=== PATIENT | female | born 1980 | race Caucasian/White ===

== ENCOUNTER → 2017-02-24 | Outpatient (CLI) | payer MEDICAID ==
--- NOTE | 2017-02-24 14:37 | Diagnostic Imaging Report ---
INDICATION: Right wrist injury, pain. COMPARISON: None. FINDINGS: Three views of right wrist demonstrate no fracture or dislocation. Articular surfaces are normal. No osseous lesion. IMPRESSION: Negative right wrist. Dictated by: Dictated on workstation # [id number]
== END ==
LOC: RAD 13:54
PROVIDERS: ATTEND Nurse Practitioner Family
DX: M25.531 Pain in right wrist (principal)
CPT/HCPCS: 73110

== ENCOUNTER 2017-05-24 16:21 | Emergency (ER) | payer MEDICAID ==
[~2017-05-24] VITALS: Ht 165.1 cm; Wt 56.7 kg
--- OUTSIDE RECORDS SUMMARY | 2017-05-24 16:26 | XMS REPORT ---
Author Author TIBURCIO ROSALES Organization [employer] Address Unknown Phone Unavailable Care Team Providers Care Gum Cook Name Role Phone TIBURCIO ROSALES CP Unavailable Allergies, Adverse Reactions, Alerts Substance Reaction Event Type Lortabs GI upset Non Drug Allergy ibuprofen GI upset Non Drug Allergy Problems Problem Type Condition ICD-9 Code Onset Dates Condition Status Problem Previous delivery, antepartum 654.23 Active Assessment Cervicalgia 723.1 Active Problem Depression NEC 311 Active Medications Medication Code System Code Instructions Start Date End Date Status Dosage Celebrex NDC 92966 100 mg orally 2 times a day November 24, 2014 1 cap(s ) One-A-Day Women NDC 74718 not defined cyclobenzaprine NDC 96713 10 mg orally 3 times a day as needed for pain November 24, 2014 1 tab(s) tramadol NDC 21555 50 mg orally up to every 6 hours as needed for pain November 24, 2014 1-2 tab(s) Procedures Procedure Coding System Code Date Office Visit, estab pt, Level 3 CPT-4 36709 November 24, 2014 Ketorolac CPT-4 J1885 November 24, 2014 Vital Signs Date/Time: November 24, 2014 Blood Pressure Systolic 140 mm Hg Temperature 98.6 F Weight 127 lbs Oximetry 97 % Pain Scale 9 0-10 Blood Pressure Diastolic 90 mm Hg Results Name Result Date Reference Range Unit Abnormality Flag XR CERVICAL SPINE 2 OR 3 VIEWS Summary Purpose [employer] Submission
--- OUTSIDE RECORDS SUMMARY | 2017-05-24 16:26 | XMS REPORT ---
Author Author TIBURCIO ROSALES Organization [employer] Address Unknown Phone Unavailable Care Team Providers Care Housekeeping/Laundry Supervisor Name Role Phone TIBURCIO ROSALES CP Unavailable Allergies, Adverse Reactions, Alerts Substance Reaction Event Type Lortabs GI upset Non Drug Allergy ibuprofen GI upset Non Drug Allergy Problems Problem Type Condition Code Onset Dates Condition Status Problem Maternal care for scar from previous delivery O34.21 Active Assessment Low back pain M54.5 Active Problem Encounter for supervision of other normal , first trimester Z34.81 Active Assessment Muscle spasm of back M62.830 Active Medications Medication Code System Code Instructions Start Date End Date Status Dosage tramadol NDC 34186 50 mg orally every 6 hours as needed for pain December 20, 2015 1-2 tab(s) Voltaren Topical NDC 527307 1% applied topically 4 times a day as needed December 20, 2015 2 g 1 NDC 587404 not defined celecoxib NDC 19389 100 mg orally 2 times a day December 20, 2015 1 cap( s) Skelaxin NDC 1680 800 mg orally 3 times a day December 20, 2015 1 tab(s) Tylenol NDC 6732 not defined Fish Oil NDC 20028 not defined Procedures Procedure Coding System Code Date Office Visit, estab pt, Level 4 CPT-4 54272 December 20, 2015 Vital Signs Date/Time: December 20, 2015 Blood Pressure Systolic 128 mm Hg Temperature 98 F Weight 145 lbs Oximetry 98 % Pain Scale 7 0-10 Blood Pressure Diastolic 80 mm Hg Results No Known Results Summary Purpose [employer] Submission
--- OUTSIDE RECORDS SUMMARY | 2017-05-24 16:26 | XMS REPORT ---
Author Author MAUREEN GUERRERO Organization [employer] Address Unknown Phone Unavailable Care Team Providers Care Optometrist Owner Name Role Phone MAUREEN GUERRERO CP Unavailable Allergies No Known Allergies Problems Problem Type Condition Code Onset Dates Condition Status Problem Previous delivery, antepartum 654.23 Active Problem Depression NEC 311 Active Medications No Known Medications Results No Known Results Summary Purpose [employer] Submission
--- OUTSIDE RECORDS SUMMARY | 2017-05-24 16:26 | XMS REPORT ---
Author Author TIBURCIO ROSALES Organization [employer] Address Unknown Phone Unavailable Care Team Providers Care Air Table Operator Name Role Phone TIBURCIO ROSALES CP Unavailable Allergies No Known Allergies Problems Problem Type Condition Code Onset Dates Condition Status Problem Maternal care for scar from previous delivery O34.21 Active Problem Encounter for supervision of other normal , first trimester Z34.81 Active Medications No Known Medications Results No Known Results Summary Purpose [employer] Submission
--- OUTSIDE RECORDS SUMMARY | 2017-05-24 16:26 | XMS REPORT ---
Author Author MAUREEN GUERRERO Organization [employer] Address Unknown Phone Unavailable Care Team Providers Care Chief Scientific Officer Name Role Phone MAUREEN GUERRERO CP Unavailable Allergies, Adverse Reactions, Alerts Substance Reaction Event Type Lortabs GI upset Non Drug Allergy ibuprofen GI upset Non Drug Allergy Problems Problem Type Condition Code Onset Dates Condition Status Problem Maternal care for scar from previous delivery O34.21 Active Assessment Encounter for supervision of other normal , first trimester Z34.81 Active Problem Encounter for supervision of other normal , first trimester Z34.81 Active Assessment Maternal care for scar from previous delivery O34.21 Active Medications Medication Code System Code Instructions Start Date End Date Status Dosage Aspirin Low Dose NDC 783644 81 mg orally once a day Apr 19, 2015 1 tab(s) 1 NDC 902255 Multivitamins with Folic Acid 0.975 mg orally once a day 1 cap(s) Procedures Procedure Coding System Code Date INITIAL CARE VISIT CPT-4 0500F Apr 19, 2015 Vital Signs Date/Time: Apr 19, 2015 Blood Pressure Systolic 118 mm Hg Weight 132 lb lbs Height 65 in Pain Scale 0/10 0-10 Blood Pressure Diastolic 68 mm Hg Results No Known Results Summary Purpose [employer] Submission
--- OUTSIDE RECORDS SUMMARY | 2017-05-24 16:26 | XMS REPORT ---
Author Author COOPER OLSON Organization [employer] Address Unknown Phone Unavailable Care Team Providers Care Pocket Creaser Name Role Phone COOPER OLSON CP Unavailable Allergies, Adverse Reactions, Alerts Substance Reaction Event Type Lortabs GI upset Non Drug Allergy ibuprofen GI upset Non Drug Allergy Problems Problem Type Condition Code Onset Dates Condition Status Problem Maternal care for scar from previous delivery O34.21 Active Assessment Cervicalgia M54.2 Active Problem Encounter for supervision of other normal , first trimester Z34.81 Active Medications Medication Code System Code Instructions Start Date End Date Status Dosage cyclobenzaprine [facility] 90977 10 mg orally 3 times a day November 24, 2015 1 tab(s) Procedures Procedure Coding System Code Date Office Visit, estab pt, Level 3 CPT-4 70533 November 24, 2015 Vital Signs Date/Time: November 24, 2015 Blood Pressure Systolic 110 mm Hg Temperature 96.8 F Weight 143 lbs Oximetry 98 % Pain Scale 6 0-10 Blood Pressure Diastolic 70 mm Hg Results No Known Results Summary Purpose [employer] Submission
--- OUTSIDE RECORDS SUMMARY | 2017-05-24 16:26 | XMS REPORT ---
Author Author MAUREEN GUERRERO Organization [employer] Address Unknown Phone Unavailable Care Team Providers Care Dot Compliance Specialist Name Role Phone MAUREEN GUERRERO CP Unavailable Allergies No Known Allergies Problems Problem Type Condition ICD-9 Code Onset Dates Condition Status Problem Previous delivery, antepartum 654.23 Active Problem Depression NEC 311 Active Medications No Known Medications Results No Known Results Summary Purpose [employer] Submission
--- OUTSIDE RECORDS SUMMARY | 2017-05-24 16:26 | XMS REPORT ---
Author Author MAUREEN GUERRERO Organization [employer] Address Unknown Phone Unavailable Care Team Providers Care Projection Camera Operator Name Role Phone MAUREEN GUERRERO CP Unavailable Allergies No Known Allergies Problems Problem Type Condition Code Onset Dates Condition Status Assessment Supervision of with other poor reproductive or obstetric history, first trimester O09.291 Active Assessment Weeks of gestation of not specified Z3A.00 Active Assessment Encounter for screening of mother Z36 Active Medications No Known Medications Results No Known Results Summary Purpose [employer] Submission
[2017-05-24] MEDS ORDERED: ACETAMINOPHEN 325 MG TABLET/CAPLET (TYLENOL) PO STA (17:18)
--- NOTE | 2017-05-24 18:01 | Diagnostic Imaging Report ---
EXAM: CHEST PA/LAT (2 VIEW) INDICATION: Cough. Weakness. COMPARISON: Chest radiograph 12/24/2007. FINDINGS: Normal heart size and pulmonary vascularity. No focal pulmonary opacity, pleural effusion or pneumothorax. No acute osseous findings. IMPRESSION: No acute cardiopulmonary findings Dictated by: Dictated on workstation # [id number]
--- NOTE | 2017-05-24 18:22 | ED Cough/URI ---
General Chief Complaint: Cough/Cold/Flu Symptoms Stated Complaint: FEVER;COUGH Nursing Triage Note: AMB TO ROOM C/O COUGH CONGESTION FOR 1 WEEK. SON WAS DX WITH MONO AND PNEUMONIA History of Present Illness Time seen by provider: 16:55 Initial Comments 36-year-old female reports a one-week history of cough and congestion. She states recently her son was diagnosed with mono and pneumonia. She reports a dry cough, myalgias and fevers on occasion. She's been taking over -the-counter cough aid. Timing/Duration: getting worse Severity/Quality: mild, dry cough Prior Episodes/Possible Cause: no prior episodes Associated Symptoms: cough, fever/chills, muscle aches Allergies and Home Medications Allergies Coded Allergies: No Known Allergies (Verified Allergy, Unknown, 09/15/05) Home Medications No Active Prescriptions or Reported Meds Constitutional: no symptoms reported, see HPI Respiratory: see HPI, cough All Other Systems Reviewed Negative Unless Noted: Yes Past Qwjbhpb-Ftfxki-Ghbkwj Hx Patient Social History Alcohol Use: Denies Use Recreational Drug Use: No Smoking Status: Current Everyday Smoker Recent Foreign Travel: No Contact w/Someone Who Travel: No Recent Infectious Disease Expo: No Surgeries History of Surgeries: Yes Surgeries: Appendectomy, Section Cardiovascular History of Cardiac Disorders: No Neurological History of Neurological Disord: Yes Integumentary History of Skin or Integumenta: No Reviewed Nursing Assessment Reviewed/Agree w Nursing PMH: Yes Physical Exam Vital Signs Vital Sign - Last 12Hours 05/24/17 16:47 Temp 100.2 Pulse 85 Resp 18 B/P (MAP) 137/87 (104) Pulse Ox 100 O2 Delivery Room Air Capillary Refill : Less Than 3 Seconds General Appearance: WD/WN, no apparent distress Eyes: Bilateral Eye Normal Inspection, Bilateral Eye PERRL, Bilateral Eye EOMI HEENT: PERRL/EOMI, normal ENT inspection, TMs normal, pharynx normal Respiratory: chest non-tender, lungs clear, normal breath sounds Cardiovascular: normal peripheral pulses, regular rate, rhythm, no murmur Gastrointestinal: normal bowel sounds, non tender, soft Neurologic/Psychiatric: no motor/sensory deficits, alert, normal mood/affect, oriented x 3 Skin: normal color, warm/dry Progress/Results/Core Measures Suspected Sepsis Recent Fever Within 48 Hours: No Infection Criteria Present: None New/Unexplained Altered Menta: No Sepsis Screen: No Definite Risk Sepsis Diagnosis: SIRS Temperature:100.2 Pulse: 85 Respiratory Rate: 18 Blood Pressure 137 /87 Mean: 104 Results/Orders Lab Results Laboratory Tests Test 05/24/17 17:15 Range/Units Monoscreen NEGATIVE NEGATIVE Micro Results Microbiology 05/24/17 Influenza Types A,B Antigen ([facility]) - Final, Complete My Orders Orders - ESHA MULLEN Monotest (05/24/17 17:05) Influenza A And B Antigens (05/24/17 17:05) Acetaminophen Tablet/Caplet (Tylenol T (05/24/17 17:18) Chest Pa/Lat (2 View) (05/24/17 17:36) Vital Signs/I&O Vital Sign - Last 12Hours 05/24/17 05/24/17 16:47 18:35 Temp 100.2 100.2 Pulse 85 85 Resp 18 18 B/P (MAP) 137/87 (104) Pulse Ox 100 100 O2 Delivery Room Air Capillary Refill : Less Than 3 Seconds Blood Pressure Mean: 104 Diagnostic Imaging Diagonstic Imaging: Xray Plain Films/CT/US/NM/MRI: chest Comments NAME: BALJINDER LIN MED REC#: [id number] PT STATUS: REG ER : 1980 PHYSICIAN: ESHA MULLEN ADMIT DATE: 05/24/17/ER Draft Date of Exam:05/24/17 CHEST PA/LAT (2 VIEW) EXAM: CHEST PA/LAT (2 VIEW) INDICATION: Cough. Weakness. COMPARISON: Chest radiograph 12/24/2007. FINDINGS: Normal heart size and pulmonary vascularity. No focal pulmonary opacity, pleural effusion or pneumothorax. No acute osseous findings. IMPRESSION: No acute cardiopulmonary findings Dictated on workstation # [id number] Dict: 05/24/17 1758 Trans: 05/24/17 1800 JEFFERSON [id number] Interpreted by: TARAN POLANCO MD Electronically signed by: Reviewed: Reviewed by Me Departure Impression Impression: Primary Impression: Viral upper respiratory infection Disposition: HOME, SELF-CARE Condition: Stable Departure-Patient Inst. Decision time for Depature: 18:10 Referrals: NO,LOCAL PHYSICIAN (PCP/Family) Primary Care Physician Patient Instructions: Cough, Adult (DC), Viral Upper Respiratory Infection, Adult (DC) Add. Discharge Instructions: Alternate 650 mg of Tylenol and 600 mg of ibuprofen every 4 hours for achiness, fevers or pain. Increase rest and oral water intake. Use Mucinex one tablet twice daily with full glass of water. Follow-up with your primary care provider if symptoms are not improving in 2-3 days. Return to emergency department for difficulty breathing, fever greater than 101 not responding to Tylenol or ibuprofen, new problems or concerns. All discharge instructions reviewed with patient and/or family. Voiced understanding. Scripts No Active Prescriptions or Reported Meds Work/School Note: Work Release Form Date Seen in the Emergency Department: May 24, 2017 Return to Work: May 26, 2017 Restrictions: No Restrictions ESHA MULLEN May 24, 2017 18:22
[2017-05-24 18:35] VITALS: BP 137/87
== END 2017-05-24 18:35 | disposition home or self-care (01) ==
LOC: EDUNIT# 16:21 → ER 16:23
DX: J06.9 Acute upper respiratory infection, unspecified (principal); F17.200 Nicotine dependence, unspecified, uncomplicated; Z90.49 Acquired absence of other specified parts of digestive tract; Z87.59 Personal history of other complications of pregnancy, childbirth and the puerperium
CPT/HCPCS: 36415; 71020; 86308; 87804; 99283